=== PATIENT | female | born 1960 | race Hispanic/Latino ===

== ENCOUNTER → 2019-02-11 | Outpatient (CLI) | payer OTHER | END | disposition home or self-care (01) | LOC: RAH 10:33 | PROVIDERS: ATTEND Family Medicine | DX: Z13.6 Encounter for screening for cardiovascular disorders (principal) | CPT/HCPCS: 75571 ==

== ENCOUNTER 2023-04-10 05:57 | Observation (INO) | payer BC ==
[2023-04-05 12:09] VITALS: BP 103/64
[2023-04-05 12:15] LABS: EOSINOPHILS % (AUTO) 1.2 % (0.0-8.0); HEMATOCRIT 37.9 % (36-48); LYMPHOCYTES % (AUTO) 25.9 % (21.0-51.0); MEAN CORPUSCULAR HEMOGLOBIN 31.5 pg (27.0-33.0); MEAN CORPUSCULAR HGB CONC 32.2 g/dL (32.0-36.0); MEAN CORPUSCULAR VOLUME 97.9 fL (79-99); MONOCYTES % (AUTO) 6.5 % (3.0-13.0); NEUTROPHILS % (AUTO) 65.2 % (40.0-77.0); PLATELET COUNT (AUTO) 200 K/uL (130-400); RED BLOOD CELL COUNT(AUTO) 3.87 MIL/uL (4.00-5.50); RED CELL DISTRIBUTION WIDTH 12.5 % (11.0-15.5); WHITE BLOOD COUNT (AUTO) 5.8 K/uL (4.8-10.8)
[2023-04-05 12:23] LABS: CREATININE 0.5 mg/dL (0.5-1.5); POTASSIUM 3.7 mmol/L (3.5-5.1)
[2023-04-05 12:26] LABS: INR 1.02 (0.85-1.15); PROTHROMBIN TIME 11.8 SEC (9.6-11.6)
[2023-04-05 12:27] LABS: PARTIAL THROMBOPLASTIN TIME 29.8 SEC (26.3-35.5)
[~2023-04-10] VITALS: Ht 162.6 cm; Wt 60.9 kg
[2023-04-10] VITALS (25 sets, daily range): BP systolic 93–126; BP diastolic 53–81
[~2023-04-10 05:57] MED LIST: APIX5TAB PO; ATOR10TA69 PO; LACTATED RINGERS 1000ML 1,000 ML IV SCH
[2023-04-10] MEDS ORDERED: CEFAZOLIN SODIUM 1 GM VIAL IVPB PRN (06:00)
[2023-04-10] MEDS ORDERED: TRANEXAMIC ACID 1000MG/10ML ONE ×2 (08:01→10:30)
[2023-04-10] MEDS ORDERED: SCOPOLAMINE HYDROBROMIDE 1 EACH ADH..PATCH TD ONE (09:22)
[2023-04-10] MEDS ORDERED: SUCCINYLCHOLINE 200MG/10ML SYR ONE (09:25)
[2023-04-10] MEDS ORDERED: LIDOCAINE PF 100MG/5ML (2%) SYRINGE 5ML ONE (09:25)
[2023-04-10] MEDS ORDERED: MIDAZOLAM HCL 1 MG/ML 2ML VIAL ONE (09:26)
[2023-04-10] MEDS ORDERED: PROPOFOL 10 MG/ML 20ML VIAL IV ONE (09:26)
[2023-04-10] MEDS ORDERED: FENTANYL CITRATE PF 50 MCG/1 ML 2ML VIAL ONE ×2 (09:27→12:56)
[2023-04-10] MEDS ORDERED: ROCURONIUM 10MG/1ML SYR 10 MG/ML ML ONE (09:27)
[2023-04-10] MEDS ORDERED: GLYCOPYRROLATE 1 MG/5 ML SYRINGE ONE (09:53)
[2023-04-10] MEDS ORDERED: EPHEDRINE SULFATE 50 MG/ML AMPULE ONE (10:03)
[2023-04-10] MEDS ORDERED: CEFAZOLIN SODIUM 2 GM VIAL IVPB ONE (10:10)
[2023-04-10] MEDS ORDERED: POTASSIUM CHLORIDE 20MEQ/100ML 100 ML IV PRN (10:30)
[2023-04-10] MEDS ORDERED: KCL 20 MEQ ERTAB PO PRN (10:30)
[2023-04-10] MEDS ORDERED: MORPHINE 4 MG SYG IVP PRN (10:30)
[2023-04-10] MEDS ORDERED: POTASSIUM CHLORIDE 10% ELIXIR 20 MEQ/15 ML UDCUP PO PRN (10:30)
[2023-04-10] MEDS ORDERED: HYDROCODONE/ACETAMINOPHEN 5/325 MG TAB PO PRN (10:30)
[2023-04-10] MEDS ORDERED: HYDROCODONE/ACETAMINOPHEN 10/325 MG TAB PO PRN (10:30)
[2023-04-10] MEDS ORDERED: ONDANSETRON 4MG INJ IVP PRN (10:30)
[2023-04-10] MEDS: TRAMADOL HCL 50 MG TABLET PO SCH ×2 (12:00→17:03)
[2023-04-10] MEDS ORDERED: TRANEXAMIC ACID 1000MG/10ML TP ONE (12:04)
[2023-04-10] MEDS ORDERED: NEOSTIGMINE 5MG/5ML SYR IV ONE (12:20)
[2023-04-10] MEDS ORDERED: MEPERIDINE-PF 25 MG/ML SYG ONE (12:42)
[2023-04-10] MEDS: ACETAMINOPHEN 1,000 MG/100 ML VIAL IV SCH ×2 (13:06→21:44)
[2023-04-10] MEDS: IBUPROFEN 800MG + NS 250ML IV SCH ×2 (15:16→23:46)
[2023-04-10] MEDS: 0.9%NACL 1000ML 1,000 ML IV SCH (16:36)
[2023-04-10] MEDS: CEFAZOLIN SODIUM 1 GM VIAL IVPB SCH (18:33)
[2023-04-10] MEDS: FAMOTIDINE 20MG TAB PO SCH (21:45)
[2023-04-10] MEDS: APIXABAN 5 MG TABLET PO SCH (21:45)
[2023-04-11] MEDS: 0.9%NACL 1000ML 1,000 ML IV SCH ×2 (00:58→09:00)
[2023-04-11] MEDS: CEFAZOLIN SODIUM 1 GM VIAL IVPB SCH (00:59)
[2023-04-11] MEDS: TRAMADOL HCL 50 MG TABLET PO SCH ×4 (01:03→18:12)
[2023-04-11] MEDS: ACETAMINOPHEN 1,000 MG/100 ML VIAL IV SCH (04:16)
[2023-04-11 05:00] VITALS: BP 118/64
[2023-04-11 05:07] LABS: HEMATOCRIT 29.4 % (36-48); MEAN CORPUSCULAR HEMOGLOBIN 31.7 pg (27.0-33.0); MEAN CORPUSCULAR HGB CONC 32.3 g/dL (32.0-36.0); RED CELL DISTRIBUTION WIDTH 12.9 % (11.0-15.5); WHITE BLOOD COUNT (AUTO) 7.8 K/uL (4.8-10.8)
[2023-04-11 05:20] LABS: CREATININE 0.6 mg/dL (0.5-1.5); POTASSIUM 3.8 mmol/L (3.5-5.1)
[2023-04-11 07:47] VITALS: BP 114/69
[2023-04-11] MEDS ORDERED: ATORVASTATIN 10 MG TABLET PO SCH (09:00)
[2023-04-11] MEDS ORDERED: POLYETHYLENE GLYCOL 3350 17 GM POWD.PACK PO SCH (09:00)
[2023-04-11] MEDS: APIXABAN 5 MG TABLET PO SCH (09:01)
[2023-04-11] MEDS: FAMOTIDINE 20MG TAB PO SCH (09:02)
[2023-04-11 10:58] VITALS: BP 107/61
[2023-04-11 15:35] VITALS: BP 118/71
[2023-04-13] MEDS ORDERED: BISACODYL 10 MG SUPP.RECT RC PRN (10:30)
== END 2023-04-11 18:30 | disposition home or self-care (01) ==
LOC: DAH 05:57 → DAHIP 05:58 → 4CH 13:45
PROVIDERS: ADMIT Orthopaedic Surgery; ATTEND Orthopaedic Surgery
DX: M16.12 Unilateral primary osteoarthritis, left hip (principal); Z20.822 Contact with and (suspected) exposure to COVID-19; D68.59 Other primary thrombophilia; Z79.01 Long term (current) use of anticoagulants; Z79.899 Other long term (current) drug therapy
CPT/HCPCS: 80048 ×2; 85025; 85610; 85730; 87426; 36415 ×2; 87641; 27130; 96376 ×2; 96365; 96366; 96375 ×2; 73503; 96368; 85027; 97161; 97039 ×2; 97116 ×2; A6260; C1776 ×4; G0378 ×28; A4663; J7120 ×2; A4606; J3010 ×2; J0690 ×4; J3490 ×5; J0330; J2710; J2001; J2250; J2704; J2175; J1741 ×2; A4649 ×4; G0168; A6212; A5120 ×2; A4215; A4223; A4222; A4221; J2405

== ENCOUNTER → 2024-08-12 | Outpatient (CLI) | payer BC, MEDICARE ==
[~2024-08-12] MED LIST changes: -LACTATED RINGERS 1000ML 1,000 ML IV SCH
--- NOTE | 2024-08-12 10:03 | HMCIMG ---
US THYROID/NECK REASON: Nontoxic multinodular goiter COMPARISON: None TECHNIQUE: Routine thyroid imaging protocol was performed. FINDINGS: There is nodular appearing thyroid parenchyma. Right lobe is 4.1 x 1.9 x 1.6 cm. Left is 3.5 x 1.6 x 1.3 cm. There are multiple nodules in the right lobe. Largest is lower pole measuring 2 x 2.7 cm, there is a 1.7 x 1.7 cm nodule in the midportion. There is is a 1.6 x 2.3 cm mass lower pole left lobe. There are 3 subcentimeter nodules in the isthmus and an additional subcentimeter nodule left upper pole. There are 2 subcentimeter nodules upper pole. The nodules all have a similar characteristic, well-circumscribed with multiple small cysts scattered throughout an otherwise solid appearing nodule. The thyroid T score on these nodules is 2, not suspicious, no biopsy necessary. IMPRESSION: 1. Multinodular goiter including multiple spongiform nodules, thyroid T score is 2, not suspicious, no biopsy necessary at this time.
== END | disposition home or self-care (01) ==
LOC: RAH 07:30
PROVIDERS: ATTEND Surgery
DX: E04.2 Nontoxic multinodular goiter (principal)
CPT/HCPCS: 76536